=== PATIENT | male | born 1975 | race Caucasian/White ===

== ENCOUNTER 2021-09-02 11:56 | Inpatient (IN) | payer OTHER ==
[2021-09-02 12:56] VITALS: BMI 29.6
[2021-09-02] MEDS ORDERED: IBUPROFEN 400 MG TABLET (FP) PO PRN (14:28)
[2021-09-02] MEDS ORDERED: NICOTINE 10 MG CARTRIDGE (INHALER) IH PRN (14:28)
[2021-09-02] MEDS ORDERED: guaiFENesin 200 MG/10 ML 10 ML UNIT-DOSE CUPS PO PRN (14:28)
[2021-09-02] MEDS ORDERED: MAGNESIUM HYDROX 2400MG/30ML ORAL SUSPENSION 30 ML CUP PO PRN (14:28)
[2021-09-02] MEDS ORDERED: LOPERAMIDE HCL 2 MG CAPSULE PO PRN (14:28)
[2021-09-02] MEDS ORDERED: ACETAMINOPHEN 325 MG TABLET (FP) PO PRN (14:28)
[2021-09-02] MEDS ORDERED: MAGNESIUM CITRATE 300 ML BOTTLE PO PRN (14:28)
[2021-09-02] MEDS ORDERED: P-EPHED 60MG/TRIPROLIDI 2.5MG TABLET PO PRN (14:28)
[2021-09-02] MEDS ORDERED: hydrOXYzine PAMOATE 25 MG CAPSULE (FP) PO SCH (18:00)
[2021-09-02] MEDS ORDERED: traZODone HCL 100 MG TABLET (FP) PO ONE (22:00)
[2021-09-02] MEDS ORDERED: GABAPENTIN 400 MG CAPSULE PO ONE (22:00)
[2021-09-02] MEDS ORDERED: MELATONIN 5 MG TABLETS PO SCH (22:00)
[2021-09-02] MEDS ORDERED: OLANZapine 10 MG TABLET PO ONE (22:00)
[2021-09-02] MEDS ORDERED: TUBERCULIN PPD 5 TU/0.1ML VIAL ID ONE (23:06)
[2021-09-02] MEDS: BACITRACIN 0.9 GM PACKET TP SCH (23:11)
[2021-09-02] MEDS: THIAMINE HCL 100 MG TABLET (FP) PO SCH (23:12)
[2021-09-03 01:50] LABS: URINE APPEARANCE CLEAR; URINE BILIRUBIN NEGATIVE (NEGATIVE); URINE COLOR YELLOW; URINE GLUCOSE (UA) NEGATIVE (NEGATIVE); URINE KETONE NEGATIVE (NEGATIVE); URINE LEUK ESTERASE NEGATIVE (NEGATIVE); URINE NITRITE NEGATIVE (NEGATIVE); URINE PROTEIN NEGATIVE (NEGATIVE); URINE UROBILINOGEN 0.2 mg/dL (0.2-1.0)
[2021-09-03] MEDS: BACITRACIN 0.9 GM PACKET TP SCH ×2 (10:28→21:10)
[2021-09-03] MEDS: hydrOXYzine PAMOATE 25 MG CAPSULE (FP) PO PRN ×2 (10:28→14:23)
[2021-09-03] MEDS: PRENATAL VITAMINS W/ FOLIC ACID TABLET (FP) PO SCH (10:28)
[2021-09-03] MEDS: NICOTINE 7 MG/24 HOURS TOPICAL PATCH TD SCH (10:28)
[2021-09-03] MEDS ORDERED: TUBERCULIN PPD 5 TU/0.1ML VIAL ID ONE (10:49)
[2021-09-03 13:11] LABS: HEMATOCRIT 41.8 % (35.4-49); HEMOGLOBIN 14.1 GM/dL (11.7-16.9); MCH 30.5 pg (25.7-33.7); MCHC 33.7 g/dl (32.0-35.9); MEAN CELL VOLUME 90.3 fl (80-96); MEAN PLT VOLUME 8.6 fl (7.5-11.1); RBC 4.63 M/mm3 (4.00-5.60); RDW 12.9 % (11.9-15.9); WHITE BLOOD COUNT 8.2 K/mm3 (4.0-10.0)
[2021-09-03 13:36] LABS: CALCIUM 9.4 mg/dL (8.5-10.1)
[2021-09-03 13:37] LABS: ALBUMIN 3.8 g/dl (3.4-5.0); BLOOD UREA NITROGEN 9.4 mg/dL (7-18)
[2021-09-03 13:40] LABS: CREATININE 0.8 mg/dL (0.55-1.3)
[2021-09-03 13:41] LABS: BILIRUBIN,TOTAL 0.5 mg/dL (0.2-1); TOT PROT 7.6 g/dl (6.4-8.2)
[2021-09-03 13:44] LABS: PLATELET COUNT 259 10^3/uL (134-434)
[2021-09-03 13:54] LABS: SYPHILIS W/ RPR CONF NON-REACTIVE (NONREACTIVE)
[2021-09-03] MEDS: CALCIUM 500MG/VIT-D 200 UNITS COMBO TABLET (FP) PO SCH ×2 (15:27→21:11)
[2021-09-03] MEDS: THIAMINE HCL 100 MG TABLET (FP) PO SCH (21:10)
[2021-09-03] MEDS: MELATONIN 5 MG TABLETS PO PRN (21:10)
[2021-09-03] MEDS: traZODone HCL 50 MG TABLET (FP) PO SCH (21:11)
[2021-09-03] MEDS: GABAPENTIN 400 MG CAPSULE PO SCH (21:11)
[2021-09-03] MEDS: OLANZapine 10 MG TABLET PO SCH (21:11)
[2021-09-03] MEDS ORDERED: hydrOXYzine PAMOATE 50 MG CAPSULE (FP) PO SCH (22:00)
[2021-09-04] MEDS: GABAPENTIN 400 MG CAPSULE PO SCH ×3 (06:00→21:14)
[2021-09-04] MEDS: CALCIUM 500MG/VIT-D 200 UNITS COMBO TABLET (FP) PO SCH ×2 (09:39→21:15)
[2021-09-04] MEDS: BACITRACIN 0.9 GM PACKET TP SCH ×2 (09:39→21:16)
[2021-09-04] MEDS: PRENATAL VITAMINS W/ FOLIC ACID TABLET (FP) PO SCH (09:39)
[2021-09-04] MEDS: hydrOXYzine PAMOATE 25 MG CAPSULE (FP) PO PRN ×3 (09:41→18:46)
[2021-09-04] MEDS: NICOTINE 7 MG/24 HOURS TOPICAL PATCH TD SCH (09:42)
[2021-09-04] MEDS ORDERED: OLANZapine 10 MG TABLET PO SCH (10:00)
[2021-09-04] MEDS: FLUoxetine HCL 10 MG TABLET PO SCH (12:07)
[2021-09-04] MEDS: NICOTINE 10 MG CARTRIDGE (INHALER) IH PRN (16:51)
[2021-09-04] MEDS: traZODone HCL 50 MG TABLET (FP) PO SCH (21:14)
[2021-09-04] MEDS: OLANZapine 10 MG TABLET PO SCH (21:14)
[2021-09-04] MEDS: THIAMINE HCL 100 MG TABLET (FP) PO SCH (21:16)
[2021-09-05] MEDS: GABAPENTIN 400 MG CAPSULE PO SCH (06:12)
[2021-09-05] MEDS: hydrOXYzine PAMOATE 25 MG CAPSULE (FP) PO PRN ×4 (06:13→18:18)
[2021-09-05] MEDS: BACITRACIN 0.9 GM PACKET TP SCH ×2 (09:57→21:12)
[2021-09-05] MEDS: NICOTINE 7 MG/24 HOURS TOPICAL PATCH TD SCH (09:57)
[2021-09-05] MEDS: PRENATAL VITAMINS W/ FOLIC ACID TABLET (FP) PO SCH (09:58)
[2021-09-05] MEDS: FLUoxetine HCL 10 MG TABLET PO SCH (09:59)
[2021-09-05] MEDS: CALCIUM 500MG/VIT-D 200 UNITS COMBO TABLET (FP) PO SCH ×2 (09:59→21:12)
[2021-09-05] MEDS: GABAPENTIN 300 MG CAPSULE PO SCH ×2 (14:17→21:13)
[2021-09-05] MEDS: NICOTINE 10 MG CARTRIDGE (INHALER) IH PRN (14:18)
[2021-09-05] MEDS: traZODone HCL 50 MG TABLET (FP) PO SCH (21:12)
[2021-09-05] MEDS: MELATONIN 5 MG TABLETS PO PRN (21:13)
[2021-09-05] MEDS: THIAMINE HCL 100 MG TABLET (FP) PO SCH (21:13)
[2021-09-05] MEDS: OLANZapine 10 MG TABLET PO SCH (21:13)
[2021-09-06] MEDS: GABAPENTIN 300 MG CAPSULE PO SCH ×3 (05:44→21:19)
[2021-09-06] MEDS: hydrOXYzine PAMOATE 25 MG CAPSULE (FP) PO PRN ×5 (05:44→22:12)
[2021-09-06] MEDS: NICOTINE 10 MG CARTRIDGE (INHALER) IH PRN ×2 (07:54→18:01)
[2021-09-06] MEDS: BACITRACIN 0.9 GM PACKET TP SCH ×2 (10:47→21:19)
[2021-09-06] MEDS: NICOTINE 7 MG/24 HOURS TOPICAL PATCH TD SCH (10:47)
[2021-09-06] MEDS: PRENATAL VITAMINS W/ FOLIC ACID TABLET (FP) PO SCH (10:48)
[2021-09-06] MEDS: CALCIUM 500MG/VIT-D 200 UNITS COMBO TABLET (FP) PO SCH ×2 (10:48→21:19)
[2021-09-06] MEDS: FLUoxetine HCL 10 MG TABLET PO SCH (10:48)
[2021-09-06] MEDS: OLANZapine 10 MG TABLET PO SCH ×2 (10:48→21:19)
[2021-09-06] MEDS: THIAMINE HCL 100 MG TABLET (FP) PO SCH (21:19)
[2021-09-06] MEDS: traZODone HCL 50 MG TABLET (FP) PO SCH (21:19)
[2021-09-06] MEDS: MELATONIN 5 MG TABLETS PO PRN (22:12)
[2021-09-07] MEDS: GABAPENTIN 300 MG CAPSULE PO SCH ×3 (06:20→21:25)
[2021-09-07] MEDS: hydrOXYzine PAMOATE 25 MG CAPSULE (FP) PO PRN ×4 (06:20→22:41)
[2021-09-07] MEDS: NICOTINE 10 MG CARTRIDGE (INHALER) IH PRN ×2 (08:47→21:25)
[2021-09-07] MEDS: FLUoxetine HCL 10 MG TABLET PO SCH (09:56)
[2021-09-07] MEDS: NICOTINE 7 MG/24 HOURS TOPICAL PATCH TD SCH (09:56)
[2021-09-07] MEDS: BACITRACIN 0.9 GM PACKET TP SCH ×2 (09:56→21:25)
[2021-09-07] MEDS: PRENATAL VITAMINS W/ FOLIC ACID TABLET (FP) PO SCH (09:56)
[2021-09-07] MEDS: CALCIUM 500MG/VIT-D 200 UNITS COMBO TABLET (FP) PO SCH ×2 (09:56→21:25)
[2021-09-07] MEDS: OLANZapine 10 MG TABLET PO SCH ×2 (09:57→21:25)
[2021-09-07] MEDS: traZODone HCL 50 MG TABLET (FP) PO SCH (21:25)
[2021-09-07] MEDS: THIAMINE HCL 100 MG TABLET (FP) PO SCH (21:26)
[2021-09-07] MEDS: MELATONIN 5 MG TABLETS PO PRN (22:41)
[2021-09-08] MEDS: hydrOXYzine PAMOATE 25 MG CAPSULE (FP) PO PRN ×4 (05:40→21:18)
[2021-09-08] MEDS: GABAPENTIN 300 MG CAPSULE PO SCH ×3 (05:40→21:18)
[2021-09-08] MEDS: NICOTINE 7 MG/24 HOURS TOPICAL PATCH TD SCH (11:00)
[2021-09-08] MEDS: NICOTINE 10 MG CARTRIDGE (INHALER) IH PRN (11:00)
[2021-09-08] MEDS: BACITRACIN 0.9 GM PACKET TP SCH ×2 (11:00→21:19)
[2021-09-08] MEDS: PRENATAL VITAMINS W/ FOLIC ACID TABLET (FP) PO SCH (11:01)
[2021-09-08] MEDS: OLANZapine 10 MG TABLET PO SCH ×2 (11:01→21:18)
[2021-09-08] MEDS: FLUoxetine HCL 20 MG CAPSULE PO SCH (11:01)
[2021-09-08] MEDS: CALCIUM 500MG/VIT-D 200 UNITS COMBO TABLET (FP) PO SCH ×2 (11:02→21:19)
[2021-09-08] MEDS: MELATONIN 5 MG TABLETS PO PRN (21:18)
[2021-09-08] MEDS: THIAMINE HCL 100 MG TABLET (FP) PO SCH (21:18)
[2021-09-08] MEDS: traZODone HCL 50 MG TABLET (FP) PO SCH (21:18)
[2021-09-09] MEDS: NICOTINE 10 MG CARTRIDGE (INHALER) IH PRN ×4 (06:29→21:09)
[2021-09-09] MEDS: hydrOXYzine PAMOATE 25 MG CAPSULE (FP) PO PRN ×4 (06:29→21:09)
[2021-09-09] MEDS: GABAPENTIN 300 MG CAPSULE PO SCH ×3 (06:29→21:09)
[2021-09-09] MEDS: OLANZapine 10 MG TABLET PO SCH ×2 (10:13→21:09)
[2021-09-09] MEDS: FLUoxetine HCL 20 MG CAPSULE PO SCH (10:13)
[2021-09-09] MEDS: CALCIUM 500MG/VIT-D 200 UNITS COMBO TABLET (FP) PO SCH ×2 (10:13→21:09)
[2021-09-09] MEDS: BACITRACIN 0.9 GM PACKET TP SCH ×2 (10:13→21:09)
[2021-09-09] MEDS: NICOTINE 7 MG/24 HOURS TOPICAL PATCH TD SCH (10:13)
[2021-09-09] MEDS: PRENATAL VITAMINS W/ FOLIC ACID TABLET (FP) PO SCH (10:13)
[2021-09-09] MEDS: MELATONIN 5 MG TABLETS PO PRN (21:08)
[2021-09-09] MEDS: traZODone HCL 50 MG TABLET (FP) PO SCH (21:08)
[2021-09-09] MEDS: THIAMINE HCL 100 MG TABLET (FP) PO SCH (21:08)
[2021-09-10] MEDS: GABAPENTIN 300 MG CAPSULE PO SCH ×3 (06:08→21:14)
[2021-09-10] MEDS: hydrOXYzine PAMOATE 25 MG CAPSULE (FP) PO PRN ×4 (06:08→21:15)
[2021-09-10] MEDS: PRENATAL VITAMINS W/ FOLIC ACID TABLET (FP) PO SCH (10:57)
[2021-09-10] MEDS: BACITRACIN 0.9 GM PACKET TP SCH ×2 (10:57→21:39)
[2021-09-10] MEDS: NICOTINE 7 MG/24 HOURS TOPICAL PATCH TD SCH (10:59)
[2021-09-10] MEDS: CALCIUM 500MG/VIT-D 200 UNITS COMBO TABLET (FP) PO SCH ×2 (10:59→21:14)
[2021-09-10] MEDS: OLANZapine 10 MG TABLET PO SCH ×2 (10:59→21:14)
[2021-09-10] MEDS: NICOTINE 10 MG CARTRIDGE (INHALER) IH PRN ×2 (10:59→21:15)
[2021-09-10] MEDS: FLUoxetine HCL 20 MG CAPSULE PO SCH (10:59)
[2021-09-10] MEDS: traZODone HCL 50 MG TABLET (FP) PO SCH (21:13)
[2021-09-10] MEDS: MELATONIN 5 MG TABLETS PO PRN (21:15)
[2021-09-10] MEDS: THIAMINE HCL 100 MG TABLET (FP) PO SCH (21:15)
[2021-09-11] MEDS: GABAPENTIN 300 MG CAPSULE PO SCH ×3 (06:11→21:13)
[2021-09-11] MEDS: hydrOXYzine PAMOATE 25 MG CAPSULE (FP) PO PRN ×4 (06:11→21:15)
[2021-09-11] MEDS: NICOTINE 7 MG/24 HOURS TOPICAL PATCH TD SCH (10:16)
[2021-09-11] MEDS: BACITRACIN 0.9 GM PACKET TP SCH ×2 (10:16→23:29)
[2021-09-11] MEDS: FLUoxetine HCL 20 MG CAPSULE PO SCH (10:17)
[2021-09-11] MEDS: CALCIUM 500MG/VIT-D 200 UNITS COMBO TABLET (FP) PO SCH ×2 (10:17→21:13)
[2021-09-11] MEDS: NICOTINE 10 MG CARTRIDGE (INHALER) IH PRN ×2 (10:18→14:13)
[2021-09-11] MEDS: OLANZapine 10 MG TABLET PO SCH ×2 (10:18→21:15)
[2021-09-11] MEDS: PRENATAL VITAMINS W/ FOLIC ACID TABLET (FP) PO SCH (10:18)
[2021-09-11] MEDS: traZODone HCL 50 MG TABLET (FP) PO SCH (21:13)
[2021-09-11] MEDS: THIAMINE HCL 100 MG TABLET (FP) PO SCH (21:14)
[2021-09-11] MEDS: MELATONIN 5 MG TABLETS PO PRN (21:14)
[2021-09-12] MEDS: hydrOXYzine PAMOATE 25 MG CAPSULE (FP) PO PRN ×4 (05:38→18:03)
[2021-09-12] MEDS: GABAPENTIN 300 MG CAPSULE PO SCH ×3 (05:38→21:05)
[2021-09-12] MEDS: NICOTINE 10 MG CARTRIDGE (INHALER) IH PRN (06:44)
[2021-09-12] MEDS: MAG HYDROX/AL HYDROX/SIMETH 30 ML UNIT-DOSE CUP PO PRN (07:56)
[2021-09-12] MEDS: CALCIUM 500MG/VIT-D 200 UNITS COMBO TABLET (FP) PO SCH ×2 (10:55→21:05)
[2021-09-12] MEDS: NICOTINE 7 MG/24 HOURS TOPICAL PATCH TD SCH (10:55)
[2021-09-12] MEDS: FLUoxetine HCL 20 MG CAPSULE PO SCH (10:55)
[2021-09-12] MEDS: PRENATAL VITAMINS W/ FOLIC ACID TABLET (FP) PO SCH (10:55)
[2021-09-12] MEDS: OLANZapine 10 MG TABLET PO SCH ×2 (10:55→21:05)
[2021-09-12] MEDS: BACITRACIN 0.9 GM PACKET TP SCH ×2 (10:56→21:06)
[2021-09-12] MEDS: traZODone HCL 50 MG TABLET (FP) PO SCH (21:05)
[2021-09-12] MEDS: MELATONIN 5 MG TABLETS PO PRN (21:05)
[2021-09-12] MEDS: THIAMINE HCL 100 MG TABLET (FP) PO SCH (21:05)
[2021-09-13] MEDS: GABAPENTIN 300 MG CAPSULE PO SCH ×3 (06:26→21:10)
[2021-09-13] MEDS: hydrOXYzine PAMOATE 25 MG CAPSULE (FP) PO PRN ×6 (06:26→21:10)
[2021-09-13] MEDS: NICOTINE 10 MG CARTRIDGE (INHALER) IH PRN (10:39)
[2021-09-13] MEDS: NICOTINE 7 MG/24 HOURS TOPICAL PATCH TD SCH (10:40)
[2021-09-13] MEDS: PRENATAL VITAMINS W/ FOLIC ACID TABLET (FP) PO SCH (10:40)
[2021-09-13] MEDS: BACITRACIN 0.9 GM PACKET TP SCH ×2 (10:40→21:10)
[2021-09-13] MEDS: CALCIUM 500MG/VIT-D 200 UNITS COMBO TABLET (FP) PO SCH ×2 (10:41→21:10)
[2021-09-13] MEDS: FLUoxetine HCL 20 MG CAPSULE PO SCH (10:42)
[2021-09-13] MEDS: OLANZapine 10 MG TABLET PO SCH ×2 (10:43→21:10)
[2021-09-13] MEDS: MELATONIN 5 MG TABLETS PO PRN (21:09)
[2021-09-13] MEDS: traZODone HCL 50 MG TABLET (FP) PO SCH (21:10)
[2021-09-13] MEDS: THIAMINE HCL 100 MG TABLET (FP) PO SCH (21:10)
[2021-09-14] MEDS: GABAPENTIN 300 MG CAPSULE PO SCH ×3 (06:06→21:07)
[2021-09-14] MEDS: hydrOXYzine PAMOATE 25 MG CAPSULE (FP) PO PRN ×4 (06:08→21:07)
[2021-09-14] MEDS: NICOTINE 7 MG/24 HOURS TOPICAL PATCH TD SCH (10:41)
[2021-09-14] MEDS: CALCIUM 500MG/VIT-D 200 UNITS COMBO TABLET (FP) PO SCH ×2 (10:41→21:07)
[2021-09-14] MEDS: PRENATAL VITAMINS W/ FOLIC ACID TABLET (FP) PO SCH (10:42)
[2021-09-14] MEDS: OLANZapine 10 MG TABLET PO SCH ×2 (10:42→21:07)
[2021-09-14] MEDS: NICOTINE 10 MG CARTRIDGE (INHALER) IH PRN (10:44)
[2021-09-14] MEDS: FLUoxetine HCL 20 MG CAPSULE PO SCH (10:44)
[2021-09-14] MEDS: BACITRACIN 0.9 GM PACKET TP SCH ×2 (10:44→21:07)
[2021-09-14] MEDS: MAG HYDROX/AL HYDROX/SIMETH 30 ML UNIT-DOSE CUP PO PRN (14:00)
[2021-09-14] MEDS: MELATONIN 5 MG TABLETS PO PRN (21:07)
[2021-09-14] MEDS: traZODone HCL 50 MG TABLET (FP) PO SCH (21:07)
[2021-09-14] MEDS: THIAMINE HCL 100 MG TABLET (FP) PO SCH (21:07)
[2021-09-15] MEDS: GABAPENTIN 300 MG CAPSULE PO SCH ×3 (06:05→21:01)
[2021-09-15] MEDS: hydrOXYzine PAMOATE 25 MG CAPSULE (FP) PO PRN ×2 (06:05→09:57)
[2021-09-15] MEDS: FLUoxetine HCL 20 MG CAPSULE PO SCH (09:55)
[2021-09-15] MEDS: PRENATAL VITAMINS W/ FOLIC ACID TABLET (FP) PO SCH (09:55)
[2021-09-15] MEDS: CALCIUM 500MG/VIT-D 200 UNITS COMBO TABLET (FP) PO SCH ×2 (09:56→21:02)
[2021-09-15] MEDS: NICOTINE 7 MG/24 HOURS TOPICAL PATCH TD SCH (09:57)
[2021-09-15] MEDS: OLANZapine 10 MG TABLET PO SCH ×2 (09:57→21:01)
[2021-09-15] MEDS: NICOTINE 10 MG CARTRIDGE (INHALER) IH PRN ×2 (09:58→16:40)
[2021-09-15] MEDS: BACITRACIN 0.9 GM PACKET TP SCH ×2 (09:59→21:01)
[2021-09-15] MEDS: hydrOXYzine PAMOATE 50 MG CAPSULE (FP) PO PRN ×2 (14:41→21:04)
[2021-09-15] MEDS: traZODone HCL 50 MG TABLET (FP) PO SCH (21:02)
[2021-09-15] MEDS: THIAMINE HCL 100 MG TABLET (FP) PO SCH (21:02)
[2021-09-15] MEDS: MELATONIN 5 MG TABLETS PO PRN (21:02)
[2021-09-16] MEDS: hydrOXYzine PAMOATE 50 MG CAPSULE (FP) PO PRN ×3 (05:44→21:06)
[2021-09-16] MEDS: GABAPENTIN 300 MG CAPSULE PO SCH ×3 (05:45→21:05)
[2021-09-16] MEDS: FLUoxetine HCL 20 MG CAPSULE PO SCH (09:33)
[2021-09-16] MEDS: CALCIUM 500MG/VIT-D 200 UNITS COMBO TABLET (FP) PO SCH ×2 (09:33→21:06)
[2021-09-16] MEDS: PRENATAL VITAMINS W/ FOLIC ACID TABLET (FP) PO SCH (09:33)
[2021-09-16] MEDS: OLANZapine 10 MG TABLET PO SCH ×2 (09:33→21:05)
[2021-09-16] MEDS: BACITRACIN 0.9 GM PACKET TP SCH ×2 (09:33→21:04)
[2021-09-16] MEDS: NICOTINE 7 MG/24 HOURS TOPICAL PATCH TD SCH (09:35)
[2021-09-16] MEDS: NICOTINE 10 MG CARTRIDGE (INHALER) IH PRN (17:06)
[2021-09-16] MEDS: traZODone HCL 50 MG TABLET (FP) PO SCH (21:04)
[2021-09-16] MEDS: MELATONIN 5 MG TABLETS PO PRN (21:05)
[2021-09-16] MEDS: THIAMINE HCL 100 MG TABLET (FP) PO SCH (21:05)
[2021-09-17] MEDS: GABAPENTIN 300 MG CAPSULE PO SCH ×3 (05:49→21:12)
[2021-09-17] MEDS: hydrOXYzine PAMOATE 50 MG CAPSULE (FP) PO PRN ×2 (05:51→18:04)
[2021-09-17] MEDS: BACITRACIN 0.9 GM PACKET TP SCH ×2 (10:22→21:11)
[2021-09-17] MEDS: NICOTINE 7 MG/24 HOURS TOPICAL PATCH TD SCH (10:22)
[2021-09-17] MEDS: CALCIUM 500MG/VIT-D 200 UNITS COMBO TABLET (FP) PO SCH ×2 (10:23→21:12)
[2021-09-17] MEDS: OLANZapine 10 MG TABLET PO SCH ×2 (10:23→21:12)
[2021-09-17] MEDS: PRENATAL VITAMINS W/ FOLIC ACID TABLET (FP) PO SCH (10:23)
[2021-09-17] MEDS: FLUoxetine HCL 20 MG CAPSULE PO SCH (10:23)
[2021-09-17] MEDS: NICOTINE 10 MG CARTRIDGE (INHALER) IH PRN (10:24)
[2021-09-17] MEDS: MELATONIN 5 MG TABLETS PO PRN (21:11)
[2021-09-17] MEDS: THIAMINE HCL 100 MG TABLET (FP) PO SCH (21:11)
[2021-09-17] MEDS: traZODone HCL 50 MG TABLET (FP) PO SCH (21:12)
[2021-09-18] MEDS: GABAPENTIN 300 MG CAPSULE PO SCH ×3 (06:05→21:03)
[2021-09-18] MEDS: hydrOXYzine PAMOATE 50 MG CAPSULE (FP) PO PRN ×3 (06:05→18:30)
[2021-09-18] MEDS: FLUoxetine HCL 20 MG CAPSULE PO SCH (10:06)
[2021-09-18] MEDS: PRENATAL VITAMINS W/ FOLIC ACID TABLET (FP) PO SCH (10:06)
[2021-09-18] MEDS: OLANZapine 10 MG TABLET PO SCH ×2 (10:06→21:03)
[2021-09-18] MEDS: NICOTINE 7 MG/24 HOURS TOPICAL PATCH TD SCH (10:06)
[2021-09-18] MEDS: CALCIUM 500MG/VIT-D 200 UNITS COMBO TABLET (FP) PO SCH ×2 (10:06→21:03)
[2021-09-18] MEDS: NICOTINE 10 MG CARTRIDGE (INHALER) IH PRN (10:06)
[2021-09-18] MEDS: BACITRACIN 0.9 GM PACKET TP SCH ×2 (10:06→21:03)
[2021-09-18] MEDS: traZODone HCL 50 MG TABLET (FP) PO SCH (21:03)
[2021-09-18] MEDS: THIAMINE HCL 100 MG TABLET (FP) PO SCH (21:03)
[2021-09-18] MEDS: MELATONIN 5 MG TABLETS PO PRN (21:03)
[2021-09-19] MEDS: GABAPENTIN 300 MG CAPSULE PO SCH ×3 (06:07→21:09)
[2021-09-19] MEDS: hydrOXYzine PAMOATE 50 MG CAPSULE (FP) PO PRN ×3 (06:08→21:09)
[2021-09-19] MEDS: NICOTINE 7 MG/24 HOURS TOPICAL PATCH TD SCH (09:57)
[2021-09-19] MEDS: BACITRACIN 0.9 GM PACKET TP SCH ×2 (09:57→21:08)
[2021-09-19] MEDS: CALCIUM 500MG/VIT-D 200 UNITS COMBO TABLET (FP) PO SCH ×2 (09:58→21:10)
[2021-09-19] MEDS: FLUoxetine HCL 20 MG CAPSULE PO SCH (09:58)
[2021-09-19] MEDS: PRENATAL VITAMINS W/ FOLIC ACID TABLET (FP) PO SCH (09:58)
[2021-09-19] MEDS: NICOTINE 10 MG CARTRIDGE (INHALER) IH PRN (10:00)
[2021-09-19] MEDS: OLANZapine 10 MG TABLET PO SCH ×2 (11:48→21:10)
[2021-09-19] MEDS: MAG HYDROX/AL HYDROX/SIMETH 30 ML UNIT-DOSE CUP PO PRN (15:10)
[2021-09-19] MEDS: traZODone HCL 50 MG TABLET (FP) PO SCH (21:09)
[2021-09-19] MEDS: THIAMINE HCL 100 MG TABLET (FP) PO SCH (21:10)
[2021-09-19] MEDS: MELATONIN 5 MG TABLETS PO PRN (21:10)
[2021-09-20] MEDS: GABAPENTIN 300 MG CAPSULE PO SCH ×3 (06:07→21:09)
[2021-09-20] MEDS: hydrOXYzine PAMOATE 50 MG CAPSULE (FP) PO PRN ×3 (06:07→19:24)
[2021-09-20] MEDS: PRENATAL VITAMINS W/ FOLIC ACID TABLET (FP) PO SCH (10:03)
[2021-09-20] MEDS: FLUoxetine HCL 20 MG CAPSULE PO SCH (10:03)
[2021-09-20] MEDS: NICOTINE 7 MG/24 HOURS TOPICAL PATCH TD SCH (10:03)
[2021-09-20] MEDS: BACITRACIN 0.9 GM PACKET TP SCH ×2 (10:03→21:10)
[2021-09-20] MEDS: OLANZapine 10 MG TABLET PO SCH ×2 (10:04→21:09)
[2021-09-20] MEDS: CALCIUM 500MG/VIT-D 200 UNITS COMBO TABLET (FP) PO SCH ×2 (10:04→21:10)
[2021-09-20] MEDS: NICOTINE 10 MG CARTRIDGE (INHALER) IH PRN (10:06)
[2021-09-20] MEDS: traZODone HCL 50 MG TABLET (FP) PO SCH (21:08)
[2021-09-20] MEDS: MELATONIN 5 MG TABLETS PO PRN (21:09)
[2021-09-20] MEDS: THIAMINE HCL 100 MG TABLET (FP) PO SCH (21:10)
[2021-09-21] MEDS: hydrOXYzine PAMOATE 50 MG CAPSULE (FP) PO PRN ×3 (05:42→18:57)
[2021-09-21] MEDS: GABAPENTIN 300 MG CAPSULE PO SCH (05:43)
[2021-09-21] MEDS: NICOTINE 7 MG/24 HOURS TOPICAL PATCH TD SCH (10:34)
[2021-09-21] MEDS: BACITRACIN 0.9 GM PACKET TP SCH ×2 (10:34→21:05)
[2021-09-21] MEDS: NICOTINE 10 MG CARTRIDGE (INHALER) IH PRN ×2 (10:34→21:05)
[2021-09-21] MEDS: PRENATAL VITAMINS W/ FOLIC ACID TABLET (FP) PO SCH (10:35)
[2021-09-21] MEDS: CALCIUM 500MG/VIT-D 200 UNITS COMBO TABLET (FP) PO SCH ×2 (10:35→21:05)
[2021-09-21] MEDS: FLUoxetine HCL 20 MG CAPSULE PO SCH (10:35)
[2021-09-21] MEDS: OLANZapine 10 MG TABLET PO SCH (10:35)
[2021-09-21] MEDS: GABAPENTIN 400 MG CAPSULE PO SCH ×2 (14:01→21:05)
[2021-09-21] MEDS: THIAMINE HCL 100 MG TABLET (FP) PO SCH (21:05)
[2021-09-21] MEDS: MELATONIN 5 MG TABLETS PO PRN (21:05)
[2021-09-21] MEDS: traZODone HCL 50 MG TABLET (FP) PO SCH (21:05)
[2021-09-21] MEDS: OLANZapine 5 MG TABLET PO SCH (21:22)
[2021-09-22] MEDS: hydrOXYzine PAMOATE 50 MG CAPSULE (FP) PO PRN ×3 (05:46→18:43)
[2021-09-22] MEDS: GABAPENTIN 400 MG CAPSULE PO SCH ×3 (05:46→21:07)
[2021-09-22] MEDS: FLUoxetine HCL 20 MG CAPSULE PO SCH (09:52)
[2021-09-22] MEDS: CALCIUM 500MG/VIT-D 200 UNITS COMBO TABLET (FP) PO SCH ×2 (09:52→21:07)
[2021-09-22] MEDS: PRENATAL VITAMINS W/ FOLIC ACID TABLET (FP) PO SCH (09:52)
[2021-09-22] MEDS: BACITRACIN 0.9 GM PACKET TP SCH ×2 (09:52→21:07)
[2021-09-22] MEDS: OLANZapine 10 MG TABLET PO SCH (09:52)
[2021-09-22] MEDS: NICOTINE 7 MG/24 HOURS TOPICAL PATCH TD SCH (09:53)
[2021-09-22] MEDS: NICOTINE 10 MG CARTRIDGE (INHALER) IH PRN (09:53)
[2021-09-22] MEDS: MELATONIN 5 MG TABLETS PO PRN (21:07)
[2021-09-22] MEDS: THIAMINE HCL 100 MG TABLET (FP) PO SCH (21:07)
[2021-09-22] MEDS: traZODone HCL 50 MG TABLET (FP) PO SCH (21:07)
[2021-09-22] MEDS: OLANZapine 5 MG TABLET PO SCH (21:07)
[2021-09-23] MEDS: hydrOXYzine PAMOATE 50 MG CAPSULE (FP) PO PRN ×3 (06:08→19:17)
[2021-09-23] MEDS: GABAPENTIN 400 MG CAPSULE PO SCH ×3 (06:08→21:13)
[2021-09-23] MEDS: NICOTINE 7 MG/24 HOURS TOPICAL PATCH TD SCH (10:01)
[2021-09-23] MEDS: PRENATAL VITAMINS W/ FOLIC ACID TABLET (FP) PO SCH (10:01)
[2021-09-23] MEDS: CALCIUM 500MG/VIT-D 200 UNITS COMBO TABLET (FP) PO SCH ×2 (10:01→21:13)
[2021-09-23] MEDS: BACITRACIN 0.9 GM PACKET TP SCH ×2 (10:01→21:13)
[2021-09-23] MEDS: NICOTINE 10 MG CARTRIDGE (INHALER) IH PRN (10:01)
[2021-09-23] MEDS: FLUoxetine HCL 20 MG CAPSULE PO SCH (10:01)
[2021-09-23] MEDS: OLANZapine 10 MG TABLET PO SCH (10:02)
[2021-09-23] MEDS: OLANZapine 5 MG TABLET PO SCH (21:13)
[2021-09-23] MEDS: traZODone HCL 50 MG TABLET (FP) PO SCH (21:13)
[2021-09-23] MEDS: THIAMINE HCL 100 MG TABLET (FP) PO SCH (21:13)
[2021-09-24] MEDS: hydrOXYzine PAMOATE 50 MG CAPSULE (FP) PO PRN ×3 (05:59→21:19)
[2021-09-24] MEDS: GABAPENTIN 400 MG CAPSULE PO SCH ×3 (05:59→21:18)
[2021-09-24] MEDS: BACITRACIN 0.9 GM PACKET TP SCH ×2 (09:50→21:19)
[2021-09-24] MEDS: PRENATAL VITAMINS W/ FOLIC ACID TABLET (FP) PO SCH (09:50)
[2021-09-24] MEDS: FLUoxetine HCL 20 MG CAPSULE PO SCH (09:50)
[2021-09-24] MEDS: OLANZapine 10 MG TABLET PO SCH (09:50)
[2021-09-24] MEDS: CALCIUM 500MG/VIT-D 200 UNITS COMBO TABLET (FP) PO SCH ×2 (09:50→21:19)
[2021-09-24] MEDS: NICOTINE 10 MG CARTRIDGE (INHALER) IH PRN (09:50)
[2021-09-24] MEDS: NICOTINE 7 MG/24 HOURS TOPICAL PATCH TD SCH (09:51)
[2021-09-24] MEDS: MAG HYDROX/AL HYDROX/SIMETH 30 ML UNIT-DOSE CUP PO PRN (11:53)
[2021-09-24] MEDS: traZODone HCL 50 MG TABLET (FP) PO SCH (21:18)
[2021-09-24] MEDS: OLANZapine 5 MG TABLET PO SCH (21:18)
[2021-09-24] MEDS: MELATONIN 5 MG TABLETS PO PRN (21:19)
[2021-09-24] MEDS: THIAMINE HCL 100 MG TABLET (FP) PO SCH (21:19)
[2021-09-25] MEDS: hydrOXYzine PAMOATE 50 MG CAPSULE (FP) PO PRN ×3 (06:37→19:04)
[2021-09-25] MEDS: GABAPENTIN 400 MG CAPSULE PO SCH ×3 (06:37→21:07)
[2021-09-25] MEDS: CALCIUM 500MG/VIT-D 200 UNITS COMBO TABLET (FP) PO SCH ×2 (09:36→21:08)
[2021-09-25] MEDS: NICOTINE 7 MG/24 HOURS TOPICAL PATCH TD SCH (09:36)
[2021-09-25] MEDS: FLUoxetine HCL 20 MG CAPSULE PO SCH (09:36)
[2021-09-25] MEDS: OLANZapine 10 MG TABLET PO SCH (09:36)
[2021-09-25] MEDS: PRENATAL VITAMINS W/ FOLIC ACID TABLET (FP) PO SCH (09:36)
[2021-09-25] MEDS: NICOTINE 10 MG CARTRIDGE (INHALER) IH PRN (09:37)
[2021-09-25] MEDS: BACITRACIN 0.9 GM PACKET TP SCH ×2 (10:18→21:07)
[2021-09-25] MEDS: THIAMINE HCL 100 MG TABLET (FP) PO SCH (21:08)
[2021-09-25] MEDS: traZODone HCL 50 MG TABLET (FP) PO SCH (21:08)
[2021-09-25] MEDS: OLANZapine 5 MG TABLET PO SCH (22:03)
[2021-09-26] MEDS: GABAPENTIN 400 MG CAPSULE PO SCH ×3 (06:25→21:13)
[2021-09-26] MEDS: hydrOXYzine PAMOATE 50 MG CAPSULE (FP) PO PRN ×3 (06:28→18:44)
[2021-09-26] MEDS: CALCIUM 500MG/VIT-D 200 UNITS COMBO TABLET (FP) PO SCH ×2 (10:23→21:57)
[2021-09-26] MEDS: BACITRACIN 0.9 GM PACKET TP SCH ×2 (10:23→21:15)
[2021-09-26] MEDS: PRENATAL VITAMINS W/ FOLIC ACID TABLET (FP) PO SCH (10:23)
[2021-09-26] MEDS: FLUoxetine HCL 20 MG CAPSULE PO SCH (10:23)
[2021-09-26] MEDS: NICOTINE 7 MG/24 HOURS TOPICAL PATCH TD SCH (10:23)
[2021-09-26] MEDS: OLANZapine 10 MG TABLET PO SCH (10:23)
[2021-09-26] MEDS: NICOTINE 10 MG CARTRIDGE (INHALER) IH PRN (10:24)
[2021-09-26] MEDS: MAG HYDROX/AL HYDROX/SIMETH 30 ML UNIT-DOSE CUP PO PRN (18:43)
[2021-09-26] MEDS: traZODone HCL 50 MG TABLET (FP) PO SCH (21:13)
[2021-09-26] MEDS: OLANZapine 5 MG TABLET PO SCH (21:13)
[2021-09-26] MEDS: THIAMINE HCL 100 MG TABLET (FP) PO SCH (21:14)
[2021-09-26] MEDS: MELATONIN 5 MG TABLETS PO PRN (21:14)
[2021-09-27] MEDS: GABAPENTIN 400 MG CAPSULE PO SCH ×3 (06:30→21:20)
[2021-09-27] MEDS: NICOTINE 10 MG CARTRIDGE (INHALER) IH PRN (06:30)
[2021-09-27] MEDS: hydrOXYzine PAMOATE 50 MG CAPSULE (FP) PO PRN ×3 (06:30→21:21)
[2021-09-27] MEDS: CALCIUM 500MG/VIT-D 200 UNITS COMBO TABLET (FP) PO SCH ×2 (10:01→21:22)
[2021-09-27] MEDS: FLUoxetine HCL 20 MG CAPSULE PO SCH (10:02)
[2021-09-27] MEDS: NICOTINE 7 MG/24 HOURS TOPICAL PATCH TD SCH (10:02)
[2021-09-27] MEDS: PRENATAL VITAMINS W/ FOLIC ACID TABLET (FP) PO SCH (10:02)
[2021-09-27] MEDS: BACITRACIN 0.9 GM PACKET TP SCH ×2 (10:03→21:20)
[2021-09-27] MEDS: OLANZapine 10 MG TABLET PO SCH (10:14)
[2021-09-27] MEDS: THIAMINE HCL 100 MG TABLET (FP) PO SCH (21:20)
[2021-09-27] MEDS: traZODone HCL 50 MG TABLET (FP) PO SCH (21:20)
[2021-09-27] MEDS: OLANZapine 5 MG TABLET PO SCH (21:20)
[2021-09-27] MEDS: MELATONIN 5 MG TABLETS PO PRN (21:20)
[2021-09-28] MEDS: GABAPENTIN 400 MG CAPSULE PO SCH ×3 (06:07→21:07)
[2021-09-28] MEDS: hydrOXYzine PAMOATE 50 MG CAPSULE (FP) PO PRN ×3 (06:07→19:40)
[2021-09-28] MEDS: FLUoxetine HCL 20 MG CAPSULE PO SCH (10:34)
[2021-09-28] MEDS: CALCIUM 500MG/VIT-D 200 UNITS COMBO TABLET (FP) PO SCH ×2 (10:34→21:07)
[2021-09-28] MEDS: PRENATAL VITAMINS W/ FOLIC ACID TABLET (FP) PO SCH (10:34)
[2021-09-28] MEDS: BACITRACIN 0.9 GM PACKET TP SCH ×2 (10:34→21:07)
[2021-09-28] MEDS: NICOTINE 10 MG CARTRIDGE (INHALER) IH PRN (10:35)
[2021-09-28] MEDS: NICOTINE 7 MG/24 HOURS TOPICAL PATCH TD SCH (10:35)
[2021-09-28] MEDS: traZODone HCL 50 MG TABLET (FP) PO SCH (21:07)
[2021-09-28] MEDS: MELATONIN 5 MG TABLETS PO PRN (21:07)
[2021-09-28] MEDS: THIAMINE HCL 100 MG TABLET (FP) PO SCH (21:07)
[2021-09-28] MEDS ORDERED: OLANZapine 10 MG TABLET PO SCH (22:00)
[2021-09-29] MEDS: GABAPENTIN 400 MG CAPSULE PO SCH (06:05)
[2021-09-29] MEDS: hydrOXYzine PAMOATE 50 MG CAPSULE (FP) PO PRN (06:05)
[2021-09-29 06:53] VITALS: BP 145/87; PULSE 86; TEMP 97.6
[2021-09-29] MEDS: BACITRACIN 0.9 GM PACKET TP SCH (09:32)
[2021-09-29] MEDS: PRENATAL VITAMINS W/ FOLIC ACID TABLET (FP) PO SCH (09:32)
[2021-09-29] MEDS: CALCIUM 500MG/VIT-D 200 UNITS COMBO TABLET (FP) PO SCH (09:32)
[2021-09-29] MEDS: FLUoxetine HCL 20 MG CAPSULE PO SCH (09:32)
[2021-09-29] MEDS: NICOTINE 10 MG CARTRIDGE (INHALER) IH PRN (09:33)
== END 2021-09-29 09:45 | disposition home or self-care (01) | DRG 772 ==
LOC: YASAS 11:56 → Y3W 21:30
PROVIDERS: ADMIT Allergy & Immunology; ATTEND Psychiatry & Neurology Pain Medicine
PROC: HZ42ZZZ Group Counseling for Substance Abuse Treatment, Cognitive-Behavioral (ICD-10-PCS; principal; 2021-09-02)
DX: F10.20 Alcohol dependence, uncomplicated (principal); F14.20 Cocaine dependence, uncomplicated; F13.20 Sedative, hypnotic or anxiolytic dependence, uncomplicated; F17.210 Nicotine dependence, cigarettes, uncomplicated; F31.9 Bipolar disorder, unspecified; F41.9 Anxiety disorder, unspecified; F42.9 Obsessive-compulsive disorder, unspecified; Z59.00 Homelessness unspecified; Z56.0 Unemployment, unspecified
CPT/HCPCS: 36415; 80053; 81003; 85027; 86780; 86803

== ENCOUNTER 2022-06-25 14:43 | Inpatient (IN) | payer OTHER ==
[2022-06-25 16:43] VITALS: BMI 32.6
[2022-06-25] MEDS ORDERED: BISMUTH SUBSALICYLATE 524 MG/30 ML PO PRN (18:39)
[2022-06-25] MEDS ORDERED: BENZONATATE 200 MG CAPSULE PO PRN (18:39)
[2022-06-25] MEDS ORDERED: POLYETHYLENE GLYCOL (HEALTHYLAX) 3350 17 GM PACKET PO PRN (18:39)
[2022-06-25] MEDS ORDERED: MAGNESIUM HYDROX 2400MG/30ML ORAL SUSPENSION 30 ML CUP PO PRN (18:39)
[2022-06-25] MEDS ORDERED: IBUPROFEN 400 MG TABLET (FP) PO PRN (18:39)
[2022-06-25] MEDS ORDERED: DICYCLOMINE HCL 10 MG CAPSULE PO PRN (18:39)
[2022-06-25] MEDS ORDERED: METHOCARBAMOL 500 MG TABLET PO PRN (18:39)
[2022-06-25] MEDS ORDERED: ACETAMINOPHEN 325 MG TABLET (FP) PO PRN (18:39)
[2022-06-25] MEDS ORDERED: LOPERAMIDE HCL 2 MG CAPSULE PO PRN (18:39)
[2022-06-25] MEDS ORDERED: IBUPROFEN 600 MG TABLET (FP) PO PRN (18:39)
[2022-06-25] MEDS ORDERED: NALOXONE HCL (KLOXXADO) 8 MG SPRAY NS PRN (18:39)
[2022-06-25] MEDS ORDERED: BENZOCAINE/MENTHOL (CHLORASEPTIC ) LOZENGE MM PRN (18:39)
[2022-06-25] MEDS ORDERED: NALOXONE HCL 0.4 MG/ML VIAL IM PRN (18:39)
[2022-06-25] MEDS ORDERED: ONDANSETRON *ODT* 4 MG TABLET SL PRN (18:39)
[2022-06-25] MEDS ORDERED: MAG HYDROX/AL HYDROX/SIMETH 30 ML UNIT-DOSE CUP PO PRN (18:39)
[2022-06-25] MEDS ORDERED: guaiFENesin 600 MG TABLET.ER (FP) PO PRN (18:39)
[2022-06-25] MEDS ORDERED: BUPRENORPHINE/NALOXONE 4 MG/1 MG FILM PACKET SL ONE (19:00)
[2022-06-25] MEDS ORDERED: BUPRENORPHINE/NALOXONE 4 MG/1 MG FILM PACKET ONE (19:10)
[2022-06-25] MEDS: LORazepam 1 MG TABLET PO PRN (19:42)
[2022-06-25] MEDS: MELATONIN 5 MG TABLETS PO SCH (22:25)
[2022-06-25] MEDS: THIAMINE HCL 100 MG TABLET (FP) PO SCH (22:25)
[2022-06-25] MEDS: LORazepam 2 MG TABLET PO SCH (22:25)
[2022-06-26] MEDS: LORazepam 2 MG TABLET PO SCH ×4 (06:00→22:01)
[2022-06-26] MEDS: metFORMIN HCL 500 MG TABLET (FP) PO SCH ×2 (06:02→17:30)
[2022-06-26] MEDS: PRENATAL VITAMINS W/ FOLIC ACID TABLET (FP) PO SCH (10:25)
[2022-06-26] MEDS: BUPRENORPHINE/NALOXONE 4 MG/1 MG FILM PACKET SL SCH ×2 (10:25→22:01)
[2022-06-26 11:23] LABS: HEMATOCRIT 37.3 % (35.4-49); HEMOGLOBIN 12.8 GM/dL (11.7-16.9); MCH 30.9 pg (25.7-33.7); MCHC 34.3 g/dl (32.0-35.9); MEAN CELL VOLUME 90.1 fl (80-96); MEAN PLT VOLUME 8.3 fl (7.5-11.1); PLATELET COUNT 234 10^3/uL (134-434); RBC 4.14 M/mm3 (4.00-5.60); RDW 12.3 % (11.9-15.9); WHITE BLOOD COUNT 3.7 K/mm3 (4.0-10.0)
[2022-06-26 11:30] LABS: ALBUMIN 3.4 g/dl (3.4-5.0); BLOOD UREA NITROGEN 13.8 mg/dL (7-18); CALCIUM 9.1 mg/dL (8.5-10.1)
[2022-06-26 11:33] LABS: CREATININE 0.7 mg/dL (0.55-1.3)
[2022-06-26 11:34] LABS: BILIRUBIN,TOTAL 0.7 mg/dL (0.2-1)
[2022-06-26 11:35] LABS: TOT PROT 6.6 g/dl (6.4-8.2)
[2022-06-26] MEDS ORDERED: OXcarbazepine 300 MG/5 ML UNIT DOSE CUPS PO SCH (11:45)
[2022-06-26] MEDS ORDERED: OXcarbazepine 150 MG TABLET (UD) PO SCH (12:00)
[2022-06-26] MEDS: PARoxetine HCL 20 MG TABLET PO SCH (12:25)
[2022-06-26] MEDS: OXcarbazepine 150 MG TABLET (UD) PO SCH (12:26)
[2022-06-26] MEDS: LURASIDONE HCL 40 MG TABLET PO SCH (12:27)
[2022-06-26] MEDS: GABAPENTIN 400 MG CAPSULE PO SCH ×2 (13:55→22:01)
[2022-06-26] MEDS: THIAMINE HCL 100 MG TABLET (FP) PO SCH (22:01)
[2022-06-26] MEDS: MELATONIN 5 MG TABLETS PO SCH (22:02)
[2022-06-27] MEDS: LORazepam 1 MG TABLET PO SCH ×4 (05:27→22:01)
[2022-06-27] MEDS: GABAPENTIN 400 MG CAPSULE PO SCH ×3 (05:27→22:01)
[2022-06-27] MEDS: metFORMIN HCL 500 MG TABLET (FP) PO SCH ×2 (06:37→17:14)
[2022-06-27] MEDS: NICOTINE 10 MG CARTRIDGE (INHALER) IH PRN ×4 (08:37→22:04)
[2022-06-27] MEDS: BUPRENORPHINE/NALOXONE 4 MG/1 MG FILM PACKET SL SCH ×2 (10:05→22:02)
[2022-06-27] MEDS: LURASIDONE HCL 40 MG TABLET PO SCH (10:05)
[2022-06-27] MEDS: PARoxetine HCL 20 MG TABLET PO SCH (10:06)
[2022-06-27] MEDS: PRENATAL VITAMINS W/ FOLIC ACID TABLET (FP) PO SCH (10:06)
[2022-06-27] MEDS: OXcarbazepine 150 MG TABLET (UD) PO SCH (10:09)
[2022-06-27] MEDS: hydrOXYzine PAMOATE 25 MG CAPSULE (FP) PO PRN (13:00)
[2022-06-27] MEDS: LORazepam 1 MG TABLET PO PRN (13:00)
[2022-06-27] MEDS: THIAMINE HCL 100 MG TABLET (FP) PO SCH (22:01)
[2022-06-27] MEDS: MELATONIN 5 MG TABLETS PO SCH (22:02)
[2022-06-28] MEDS ORDERED: LORazepam 0.5 MG TABLET PO PRN
[2022-06-28] MEDS: LORazepam 0.5 MG TABLET PO SCH ×4 (05:23→22:18)
[2022-06-28] MEDS: GABAPENTIN 400 MG CAPSULE PO SCH ×3 (05:23→22:18)
[2022-06-28] MEDS: NICOTINE 10 MG CARTRIDGE (INHALER) IH PRN ×4 (05:35→22:17)
[2022-06-28] MEDS: metFORMIN HCL 500 MG TABLET (FP) PO SCH ×2 (07:01→17:33)
[2022-06-28 09:15] VITALS: RESP 18
[2022-06-28] MEDS: PRENATAL VITAMINS W/ FOLIC ACID TABLET (FP) PO SCH (10:03)
[2022-06-28] MEDS: LURASIDONE HCL 40 MG TABLET PO SCH (10:04)
[2022-06-28] MEDS: PARoxetine HCL 20 MG TABLET PO SCH (10:04)
[2022-06-28] MEDS: BUPRENORPHINE/NALOXONE 4 MG/1 MG FILM PACKET SL SCH ×2 (10:05→22:18)
[2022-06-28] MEDS: OXcarbazepine 150 MG TABLET (UD) PO SCH (10:05)
[2022-06-28] MEDS: hydrOXYzine PAMOATE 25 MG CAPSULE (FP) PO PRN (13:59)
[2022-06-28] MEDS: MELATONIN 5 MG TABLETS PO SCH (22:17)
[2022-06-28] MEDS: THIAMINE HCL 100 MG TABLET (FP) PO SCH (22:18)
[2022-06-29] MEDS ORDERED: LORazepam 0.5 MG TABLET PO ONE (05:00)
[2022-06-29] MEDS: GABAPENTIN 400 MG CAPSULE PO SCH (05:27)
[2022-06-29] MEDS: metFORMIN HCL 500 MG TABLET (FP) PO SCH (06:12)
[2022-06-29] MEDS: PARoxetine HCL 20 MG TABLET PO SCH (10:44)
[2022-06-29] MEDS: PRENATAL VITAMINS W/ FOLIC ACID TABLET (FP) PO SCH (10:44)
[2022-06-29] MEDS: LURASIDONE HCL 40 MG TABLET PO SCH (10:44)
[2022-06-29] MEDS: hydrOXYzine PAMOATE 25 MG CAPSULE (FP) PO PRN (10:45)
[2022-06-29] MEDS: OXcarbazepine 150 MG TABLET (UD) PO SCH (10:45)
[2022-06-29] MEDS: BUPRENORPHINE/NALOXONE 4 MG/1 MG FILM PACKET SL SCH (10:45)
[2022-06-29] MEDS: NICOTINE 10 MG CARTRIDGE (INHALER) IH PRN (11:21)
[2022-06-29 13:31] VITALS: BP 140/65; PULSE 78; TEMP 98.1
== END 2022-06-29 13:30 | disposition other institution (70) | DRG 773 ==
LOC: YASAS 14:43 → Y6N 19:17
PROVIDERS: ADMIT Allergy & Immunology; ATTEND Surgery
PROC: HZ2ZZZZ Detoxification Services for Substance Abuse Treatment (ICD-10-PCS; principal; 2022-06-25)
DX: F11.23 Opioid dependence with withdrawal (principal); F10.230 Alcohol dependence with withdrawal, uncomplicated; F14.20 Cocaine dependence, uncomplicated; F17.210 Nicotine dependence, cigarettes, uncomplicated; F31.9 Bipolar disorder, unspecified; F19.282 Other psychoactive substance dependence with psychoactive substance-induced sleep disorder; F19.24 Other psychoactive substance dependence with psychoactive substance-induced mood disorder; F42.9 Obsessive-compulsive disorder, unspecified; E11.9 Type 2 diabetes mellitus without complications; Z79.84 Long term (current) use of oral hypoglycemic drugs; Z86.69 Personal history of other diseases of the nervous system and sense organs
CPT/HCPCS: 36415; 80053; 82962; 85027; 86780; C9803-CS; U0003; U0005

== ENCOUNTER 2022-06-29 13:07 | Inpatient (IN) | payer OTHER ==
[2022-06-29] MEDS ORDERED: MAGNESIUM HYDROX 2400MG/30ML ORAL SUSPENSION 30 ML CUP PO PRN (13:36)
[2022-06-29] MEDS ORDERED: BENZONATATE 200 MG CAPSULE PO PRN (13:36)
[2022-06-29] MEDS ORDERED: IBUPROFEN 600 MG TABLET (FP) PO PRN (13:36)
[2022-06-29] MEDS ORDERED: IBUPROFEN 400 MG TABLET (FP) PO PRN (13:36)
[2022-06-29] MEDS ORDERED: ACETAMINOPHEN 325 MG TABLET (FP) PO PRN (13:36)
[2022-06-29] MEDS ORDERED: guaiFENesin 600 MG TABLET.ER (FP) PO PRN (13:36)
[2022-06-29] MEDS ORDERED: BENZOCAINE/MENTHOL (CHLORASEPTIC ) LOZENGE MM PRN (13:36)
[2022-06-29] MEDS ORDERED: MAG HYDROX/AL HYDROX/SIMETH 30 ML UNIT-DOSE CUP PO PRN (13:36)
[2022-06-29] MEDS ORDERED: NALOXONE HCL 0.4 MG/ML VIAL IVPUSH PRN (13:36)
[2022-06-29] MEDS ORDERED: NALOXONE HCL (KLOXXADO) 8 MG SPRAY NS PRN (13:36)
[2022-06-29] MEDS ORDERED: POLYETHYLENE GLYCOL (HEALTHYLAX) 3350 17 GM PACKET PO PRN (13:36)
[2022-06-29] MEDS ORDERED: LOPERAMIDE HCL 2 MG CAPSULE PO PRN (13:36)
[2022-06-29] MEDS: NICOTINE 10 MG CARTRIDGE (INHALER) IH PRN ×2 (14:21→21:14)
[2022-06-29] MEDS: GABAPENTIN 400 MG CAPSULE PO SCH ×2 (14:21→21:12)
[2022-06-29] MEDS: metFORMIN HCL 500 MG TABLET (FP) PO SCH (16:40)
[2022-06-29] MEDS: THIAMINE HCL 100 MG TABLET (FP) PO SCH (21:11)
[2022-06-29] MEDS: MELATONIN 5 MG TABLETS PO SCH (21:11)
[2022-06-29] MEDS: hydrOXYzine PAMOATE 25 MG CAPSULE (FP) PO PRN (21:12)
[2022-06-29] MEDS: BUPRENORPHINE/NALOXONE 4 MG/1 MG FILM PACKET SL SCH (21:14)
[2022-06-30] MEDS: NICOTINE 10 MG CARTRIDGE (INHALER) IH PRN ×4 (02:20→21:16)
[2022-06-30] MEDS: GABAPENTIN 400 MG CAPSULE PO SCH ×3 (06:10→21:15)
[2022-06-30] MEDS: metFORMIN HCL 500 MG TABLET (FP) PO SCH ×2 (06:10→17:14)
[2022-06-30] MEDS: LURASIDONE HCL 40 MG TABLET PO SCH (10:07)
[2022-06-30] MEDS: PARoxetine HCL 20 MG TABLET PO SCH (10:07)
[2022-06-30] MEDS: BUPRENORPHINE/NALOXONE 4 MG/1 MG FILM PACKET SL SCH ×2 (10:08→21:15)
[2022-06-30] MEDS: PRENATAL VITAMINS W/ FOLIC ACID TABLET (FP) PO SCH (10:08)
[2022-06-30] MEDS: OXcarbazepine 150 MG TABLET (UD) PO SCH (10:08)
[2022-06-30] MEDS: THIAMINE HCL 100 MG TABLET (FP) PO SCH (21:14)
[2022-06-30] MEDS: MELATONIN 5 MG TABLETS PO SCH (21:14)
[2022-06-30] MEDS: hydrOXYzine PAMOATE 25 MG CAPSULE (FP) PO PRN (21:15)
[2022-07-01] MEDS: GABAPENTIN 400 MG CAPSULE PO SCH ×3 (06:41→21:29)
[2022-07-01] MEDS: metFORMIN HCL 500 MG TABLET (FP) PO SCH ×2 (06:41→16:55)
[2022-07-01] MEDS: NICOTINE 10 MG CARTRIDGE (INHALER) IH PRN ×3 (09:45→21:28)
[2022-07-01] MEDS: OXcarbazepine 150 MG TABLET (UD) PO SCH (09:46)
[2022-07-01] MEDS: PRENATAL VITAMINS W/ FOLIC ACID TABLET (FP) PO SCH (09:46)
[2022-07-01] MEDS: BUPRENORPHINE/NALOXONE 4 MG/1 MG FILM PACKET SL SCH ×2 (09:46→21:29)
[2022-07-01] MEDS: PARoxetine HCL 20 MG TABLET PO SCH (09:46)
[2022-07-01] MEDS: LURASIDONE HCL 40 MG TABLET PO SCH (09:47)
[2022-07-01] MEDS: MELATONIN 5 MG TABLETS PO SCH (21:29)
[2022-07-01] MEDS: THIAMINE HCL 100 MG TABLET (FP) PO SCH (21:29)
[2022-07-01] MEDS: hydrOXYzine PAMOATE 25 MG CAPSULE (FP) PO PRN (21:29)
[2022-07-02] MEDS: metFORMIN HCL 500 MG TABLET (FP) PO SCH ×2 (06:39→18:08)
[2022-07-02] MEDS: GABAPENTIN 400 MG CAPSULE PO SCH ×3 (06:39→21:19)
[2022-07-02] MEDS: NICOTINE 10 MG CARTRIDGE (INHALER) IH PRN ×3 (06:40→21:18)
[2022-07-02] MEDS: PRENATAL VITAMINS W/ FOLIC ACID TABLET (FP) PO SCH (09:49)
[2022-07-02] MEDS: LURASIDONE HCL 40 MG TABLET PO SCH (09:49)
[2022-07-02] MEDS: PARoxetine HCL 20 MG TABLET PO SCH (09:50)
[2022-07-02] MEDS: BUPRENORPHINE/NALOXONE 4 MG/1 MG FILM PACKET SL SCH ×2 (09:50→21:19)
[2022-07-02] MEDS: OXcarbazepine 150 MG TABLET (UD) PO SCH (09:50)
[2022-07-02] MEDS: METHOCARBAMOL 500 MG TABLET PO PRN (21:19)
[2022-07-02] MEDS: THIAMINE HCL 100 MG TABLET (FP) PO SCH (21:19)
[2022-07-02] MEDS: hydrOXYzine PAMOATE 25 MG CAPSULE (FP) PO PRN (21:19)
[2022-07-02] MEDS: MELATONIN 5 MG TABLETS PO SCH (21:20)
[2022-07-03] MEDS: GABAPENTIN 400 MG CAPSULE PO SCH ×3 (06:34→21:07)
[2022-07-03] MEDS: metFORMIN HCL 500 MG TABLET (FP) PO SCH ×2 (06:34→16:45)
[2022-07-03] MEDS: NICOTINE 10 MG CARTRIDGE (INHALER) IH PRN ×4 (06:35→18:19)
[2022-07-03] MEDS: LURASIDONE HCL 40 MG TABLET PO SCH (09:57)
[2022-07-03] MEDS: PRENATAL VITAMINS W/ FOLIC ACID TABLET (FP) PO SCH (09:58)
[2022-07-03] MEDS: PARoxetine HCL 20 MG TABLET PO SCH (09:58)
[2022-07-03] MEDS: BUPRENORPHINE/NALOXONE 4 MG/1 MG FILM PACKET SL SCH ×2 (09:59→21:07)
[2022-07-03] MEDS: OXcarbazepine 150 MG TABLET (UD) PO SCH (09:59)
[2022-07-03] MEDS: hydrOXYzine PAMOATE 25 MG CAPSULE (FP) PO PRN ×2 (10:00→21:07)
[2022-07-03] MEDS: METHOCARBAMOL 500 MG TABLET PO PRN (21:07)
[2022-07-03] MEDS: THIAMINE HCL 100 MG TABLET (FP) PO SCH (21:07)
[2022-07-03] MEDS: MELATONIN 5 MG TABLETS PO SCH (21:07)
[2022-07-04] MEDS: GABAPENTIN 400 MG CAPSULE PO SCH ×3 (06:46→21:05)
[2022-07-04] MEDS: metFORMIN HCL 500 MG TABLET (FP) PO SCH ×2 (06:46→16:47)
[2022-07-04] MEDS: NICOTINE 10 MG CARTRIDGE (INHALER) IH PRN ×3 (08:58→20:01)
[2022-07-04] MEDS: LURASIDONE HCL 40 MG TABLET PO SCH (10:00)
[2022-07-04] MEDS: PRENATAL VITAMINS W/ FOLIC ACID TABLET (FP) PO SCH (10:00)
[2022-07-04] MEDS: BUPRENORPHINE/NALOXONE 4 MG/1 MG FILM PACKET SL SCH ×2 (10:00→21:06)
[2022-07-04] MEDS: PARoxetine HCL 20 MG TABLET PO SCH (10:00)
[2022-07-04] MEDS: hydrOXYzine PAMOATE 25 MG CAPSULE (FP) PO PRN ×2 (10:01→21:05)
[2022-07-04] MEDS: OXcarbazepine 150 MG TABLET (UD) PO SCH (10:01)
[2022-07-04] MEDS: THIAMINE HCL 100 MG TABLET (FP) PO SCH (21:05)
[2022-07-04] MEDS: MELATONIN 5 MG TABLETS PO SCH (21:05)
[2022-07-04] MEDS: METHOCARBAMOL 500 MG TABLET PO PRN (21:05)
[2022-07-05] MEDS: metFORMIN HCL 500 MG TABLET (FP) PO SCH ×2 (06:25→16:44)
[2022-07-05] MEDS: GABAPENTIN 400 MG CAPSULE PO SCH ×3 (06:25→21:04)
[2022-07-05] MEDS: BUPRENORPHINE/NALOXONE 4 MG/1 MG FILM PACKET SL SCH ×2 (09:50→21:04)
[2022-07-05] MEDS: PRENATAL VITAMINS W/ FOLIC ACID TABLET (FP) PO SCH (09:51)
[2022-07-05] MEDS: LURASIDONE HCL 40 MG TABLET PO SCH (09:51)
[2022-07-05] MEDS: PARoxetine HCL 20 MG TABLET PO SCH (09:51)
[2022-07-05] MEDS: OXcarbazepine 150 MG TABLET (UD) PO SCH (09:52)
[2022-07-05] MEDS: NICOTINE 10 MG CARTRIDGE (INHALER) IH PRN ×3 (09:52→18:01)
[2022-07-05] MEDS: MELATONIN 5 MG TABLETS PO SCH (21:04)
[2022-07-05] MEDS: THIAMINE HCL 100 MG TABLET (FP) PO SCH (21:04)
[2022-07-05] MEDS: hydrOXYzine PAMOATE 25 MG CAPSULE (FP) PO PRN (21:04)
[2022-07-06] MEDS: GABAPENTIN 400 MG CAPSULE PO SCH ×3 (06:36→21:02)
[2022-07-06] MEDS: metFORMIN HCL 500 MG TABLET (FP) PO SCH ×2 (06:36→16:38)
[2022-07-06] MEDS: NICOTINE 10 MG CARTRIDGE (INHALER) IH PRN ×3 (08:48→21:03)
[2022-07-06] MEDS: PARoxetine HCL 20 MG TABLET PO SCH (09:41)
[2022-07-06] MEDS: OXcarbazepine 150 MG TABLET (UD) PO SCH (09:41)
[2022-07-06] MEDS: NICOTINE 14 MG/24 HOURS TOPICAL PATCH TD SCH (09:41)
[2022-07-06] MEDS: LURASIDONE HCL 40 MG TABLET PO SCH (09:42)
[2022-07-06] MEDS: BUPRENORPHINE/NALOXONE 4 MG/1 MG FILM PACKET SL SCH ×2 (09:43→21:03)
[2022-07-06] MEDS: PRENATAL VITAMINS W/ FOLIC ACID TABLET (FP) PO SCH (09:43)
[2022-07-06] MEDS: hydrOXYzine PAMOATE 25 MG CAPSULE (FP) PO PRN (21:02)
[2022-07-06] MEDS: THIAMINE HCL 100 MG TABLET (FP) PO SCH (21:02)
[2022-07-06] MEDS: MELATONIN 5 MG TABLETS PO SCH (21:02)
[2022-07-07] MEDS: hydrOXYzine PAMOATE 25 MG CAPSULE (FP) PO PRN ×2 (06:28→21:05)
[2022-07-07] MEDS: GABAPENTIN 400 MG CAPSULE PO SCH ×3 (06:28→21:05)
[2022-07-07] MEDS: metFORMIN HCL 500 MG TABLET (FP) PO SCH ×2 (06:32→16:32)
[2022-07-07] MEDS: PARoxetine HCL 20 MG TABLET PO SCH (09:56)
[2022-07-07] MEDS: PRENATAL VITAMINS W/ FOLIC ACID TABLET (FP) PO SCH (09:56)
[2022-07-07] MEDS: BUPRENORPHINE/NALOXONE 4 MG/1 MG FILM PACKET SL SCH ×2 (09:56→21:05)
[2022-07-07] MEDS: NICOTINE 10 MG CARTRIDGE (INHALER) IH PRN ×2 (09:57→21:05)
[2022-07-07] MEDS: NICOTINE 14 MG/24 HOURS TOPICAL PATCH TD SCH (09:58)
[2022-07-07] MEDS: OXcarbazepine 150 MG TABLET (UD) PO SCH (09:58)
[2022-07-07] MEDS: LURASIDONE HCL 40 MG TABLET PO SCH (09:58)
[2022-07-07] MEDS: TOLNAFTATE 1% CREAM 15 GM TUBE TP SCH ×2 (11:20→21:06)
[2022-07-07] MEDS: THIAMINE HCL 100 MG TABLET (FP) PO SCH (21:05)
[2022-07-07] MEDS: MELATONIN 5 MG TABLETS PO SCH (21:06)
[2022-07-08] MEDS: GABAPENTIN 400 MG CAPSULE PO SCH ×3 (06:37→21:03)
[2022-07-08] MEDS: metFORMIN HCL 500 MG TABLET (FP) PO SCH ×2 (06:37→16:54)
[2022-07-08] MEDS: hydrOXYzine PAMOATE 25 MG CAPSULE (FP) PO PRN ×2 (06:38→21:03)
[2022-07-08] MEDS: NICOTINE 10 MG CARTRIDGE (INHALER) IH PRN ×4 (08:57→21:04)
[2022-07-08] MEDS: NICOTINE 14 MG/24 HOURS TOPICAL PATCH TD SCH (09:57)
[2022-07-08] MEDS: LURASIDONE HCL 40 MG TABLET PO SCH (09:57)
[2022-07-08] MEDS: PARoxetine HCL 20 MG TABLET PO SCH (09:58)
[2022-07-08] MEDS: BUPRENORPHINE/NALOXONE 4 MG/1 MG FILM PACKET SL SCH ×2 (09:58→21:04)
[2022-07-08] MEDS: PRENATAL VITAMINS W/ FOLIC ACID TABLET (FP) PO SCH (09:58)
[2022-07-08] MEDS: TOLNAFTATE 1% CREAM 15 GM TUBE TP SCH ×2 (09:58→23:28)
[2022-07-08] MEDS: OXcarbazepine 150 MG TABLET (UD) PO SCH (09:59)
[2022-07-08] MEDS: MELATONIN 5 MG TABLETS PO SCH (21:03)
[2022-07-08] MEDS: THIAMINE HCL 100 MG TABLET (FP) PO SCH (21:03)
[2022-07-09] MEDS: metFORMIN HCL 500 MG TABLET (FP) PO SCH ×2 (06:28→16:44)
[2022-07-09] MEDS: GABAPENTIN 400 MG CAPSULE PO SCH ×3 (06:28→21:02)
[2022-07-09] MEDS: NICOTINE 10 MG CARTRIDGE (INHALER) IH PRN ×3 (06:44→18:07)
[2022-07-09] MEDS: LURASIDONE HCL 40 MG TABLET PO SCH (09:47)
[2022-07-09] MEDS: PRENATAL VITAMINS W/ FOLIC ACID TABLET (FP) PO SCH (09:47)
[2022-07-09] MEDS: BUPRENORPHINE/NALOXONE 4 MG/1 MG FILM PACKET SL SCH ×2 (09:47→21:02)
[2022-07-09] MEDS: PARoxetine HCL 20 MG TABLET PO SCH (09:47)
[2022-07-09] MEDS: OXcarbazepine 150 MG TABLET (UD) PO SCH (09:47)
[2022-07-09] MEDS: NICOTINE 14 MG/24 HOURS TOPICAL PATCH TD SCH (09:49)
[2022-07-09] MEDS: TOLNAFTATE 1% CREAM 15 GM TUBE TP SCH ×2 (09:50→21:03)
[2022-07-09] MEDS: hydrOXYzine PAMOATE 25 MG CAPSULE (FP) PO PRN ×2 (09:55→21:02)
[2022-07-09] MEDS: THIAMINE HCL 100 MG TABLET (FP) PO SCH (21:02)
[2022-07-09] MEDS: MELATONIN 5 MG TABLETS PO SCH (21:02)
[2022-07-10] MEDS: NICOTINE 10 MG CARTRIDGE (INHALER) IH PRN ×3 (06:39→15:19)
[2022-07-10] MEDS: GABAPENTIN 400 MG CAPSULE PO SCH ×3 (06:41→21:02)
[2022-07-10] MEDS: metFORMIN HCL 500 MG TABLET (FP) PO SCH ×2 (06:41→16:35)
[2022-07-10] MEDS: TOLNAFTATE 1% CREAM 15 GM TUBE TP SCH ×2 (09:41→21:03)
[2022-07-10] MEDS: PARoxetine HCL 20 MG TABLET PO SCH (09:41)
[2022-07-10] MEDS: BUPRENORPHINE/NALOXONE 4 MG/1 MG FILM PACKET SL SCH ×2 (09:41→21:02)
[2022-07-10] MEDS: OXcarbazepine 150 MG TABLET (UD) PO SCH (09:41)
[2022-07-10] MEDS: NICOTINE 14 MG/24 HOURS TOPICAL PATCH TD SCH (09:42)
[2022-07-10] MEDS: PRENATAL VITAMINS W/ FOLIC ACID TABLET (FP) PO SCH (09:42)
[2022-07-10] MEDS: LURASIDONE HCL 40 MG TABLET PO SCH (09:42)
[2022-07-10] MEDS: hydrOXYzine PAMOATE 25 MG CAPSULE (FP) PO PRN ×2 (10:50→21:02)
[2022-07-10] MEDS: MELATONIN 5 MG TABLETS PO SCH (21:02)
[2022-07-10] MEDS: THIAMINE HCL 100 MG TABLET (FP) PO SCH (21:02)
[2022-07-11] MEDS: metFORMIN HCL 500 MG TABLET (FP) PO SCH ×2 (06:00→16:56)
[2022-07-11] MEDS: GABAPENTIN 400 MG CAPSULE PO SCH ×3 (06:21→21:10)
[2022-07-11] MEDS: NICOTINE 10 MG CARTRIDGE (INHALER) IH PRN ×3 (07:31→21:12)
[2022-07-11] MEDS: BUPRENORPHINE/NALOXONE 4 MG/1 MG FILM PACKET SL SCH ×2 (09:54→21:10)
[2022-07-11] MEDS: PRENATAL VITAMINS W/ FOLIC ACID TABLET (FP) PO SCH (09:54)
[2022-07-11] MEDS: NICOTINE 14 MG/24 HOURS TOPICAL PATCH TD SCH (09:55)
[2022-07-11] MEDS: PARoxetine HCL 20 MG TABLET PO SCH (09:55)
[2022-07-11] MEDS: OXcarbazepine 150 MG TABLET (UD) PO SCH (09:55)
[2022-07-11] MEDS: LURASIDONE HCL 40 MG TABLET PO SCH (09:55)
[2022-07-11] MEDS: hydrOXYzine PAMOATE 25 MG CAPSULE (FP) PO PRN ×2 (09:57→21:10)
[2022-07-11] MEDS: TOLNAFTATE 1% CREAM 15 GM TUBE TP SCH (09:58)
[2022-07-11] MEDS ORDERED: TOLNAFTATE 1% CREAM 15 GM TUBE TP PRN (11:46)
[2022-07-11] MEDS: MELATONIN 5 MG TABLETS PO SCH (21:10)
[2022-07-11] MEDS: THIAMINE HCL 100 MG TABLET (FP) PO SCH (21:10)
[2022-07-12] MEDS: metFORMIN HCL 500 MG TABLET (FP) PO SCH ×2 (06:48→17:44)
[2022-07-12] MEDS: GABAPENTIN 400 MG CAPSULE PO SCH ×3 (06:48→21:16)
[2022-07-12] MEDS: LURASIDONE HCL 40 MG TABLET PO SCH (09:28)
[2022-07-12] MEDS: NICOTINE 14 MG/24 HOURS TOPICAL PATCH TD SCH (09:28)
[2022-07-12] MEDS: OXcarbazepine 150 MG TABLET (UD) PO SCH (09:29)
[2022-07-12] MEDS: PRENATAL VITAMINS W/ FOLIC ACID TABLET (FP) PO SCH (09:29)
[2022-07-12] MEDS: BUPRENORPHINE/NALOXONE 4 MG/1 MG FILM PACKET SL SCH ×2 (09:29→21:16)
[2022-07-12] MEDS: PARoxetine HCL 20 MG TABLET PO SCH (09:29)
[2022-07-12] MEDS: NICOTINE 10 MG CARTRIDGE (INHALER) IH PRN ×2 (12:30→21:16)
[2022-07-12] MEDS: hydrOXYzine PAMOATE 25 MG CAPSULE (FP) PO PRN ×2 (12:30→21:16)
[2022-07-12] MEDS: MELATONIN 5 MG TABLETS PO SCH (21:16)
[2022-07-12] MEDS: THIAMINE HCL 100 MG TABLET (FP) PO SCH (21:16)
[2022-07-13] MEDS: GABAPENTIN 400 MG CAPSULE PO SCH ×3 (06:27→21:09)
[2022-07-13] MEDS: metFORMIN HCL 500 MG TABLET (FP) PO SCH ×2 (06:27→17:00)
[2022-07-13] MEDS: LURASIDONE HCL 40 MG TABLET PO SCH (09:50)
[2022-07-13] MEDS: NICOTINE 14 MG/24 HOURS TOPICAL PATCH TD SCH (09:50)
[2022-07-13] MEDS: PRENATAL VITAMINS W/ FOLIC ACID TABLET (FP) PO SCH (09:51)
[2022-07-13] MEDS: PARoxetine HCL 20 MG TABLET PO SCH (09:51)
[2022-07-13] MEDS: OXcarbazepine 150 MG TABLET (UD) PO SCH (09:52)
[2022-07-13] MEDS: hydrOXYzine PAMOATE 25 MG CAPSULE (FP) PO PRN ×2 (09:52→21:09)
[2022-07-13] MEDS: BUPRENORPHINE/NALOXONE 4 MG/1 MG FILM PACKET SL SCH ×2 (09:52→21:09)
[2022-07-13] MEDS: NICOTINE 10 MG CARTRIDGE (INHALER) IH PRN ×3 (09:55→21:08)
[2022-07-13] MEDS: THIAMINE HCL 100 MG TABLET (FP) PO SCH (21:09)
[2022-07-13] MEDS: MELATONIN 5 MG TABLETS PO SCH (21:09)
[2022-07-14] MEDS: GABAPENTIN 400 MG CAPSULE PO SCH ×3 (06:48→21:06)
[2022-07-14] MEDS: metFORMIN HCL 500 MG TABLET (FP) PO SCH ×2 (06:48→17:24)
[2022-07-14] MEDS: PRENATAL VITAMINS W/ FOLIC ACID TABLET (FP) PO SCH (09:48)
[2022-07-14] MEDS: hydrOXYzine PAMOATE 25 MG CAPSULE (FP) PO PRN ×2 (09:48→21:06)
[2022-07-14] MEDS: PARoxetine HCL 20 MG TABLET PO SCH (09:48)
[2022-07-14] MEDS: NICOTINE 14 MG/24 HOURS TOPICAL PATCH TD SCH (09:48)
[2022-07-14] MEDS: BUPRENORPHINE/NALOXONE 4 MG/1 MG FILM PACKET SL SCH ×2 (09:48→21:06)
[2022-07-14] MEDS: LURASIDONE HCL 40 MG TABLET PO SCH (09:48)
[2022-07-14] MEDS: OXcarbazepine 150 MG TABLET (UD) PO SCH (09:48)
[2022-07-14] MEDS: NICOTINE 10 MG CARTRIDGE (INHALER) IH PRN ×3 (09:50→23:36)
[2022-07-14] MEDS: MELATONIN 5 MG TABLETS PO SCH (21:06)
[2022-07-14] MEDS: THIAMINE HCL 100 MG TABLET (FP) PO SCH (21:06)
[2022-07-15] MEDS: GABAPENTIN 400 MG CAPSULE PO SCH ×3 (06:37→21:05)
[2022-07-15] MEDS: metFORMIN HCL 500 MG TABLET (FP) PO SCH ×2 (06:37→17:07)
[2022-07-15] MEDS: BUPRENORPHINE/NALOXONE 4 MG/1 MG FILM PACKET SL SCH ×2 (09:42→21:05)
[2022-07-15] MEDS: NICOTINE 10 MG CARTRIDGE (INHALER) IH PRN ×2 (09:42→13:56)
[2022-07-15] MEDS: PARoxetine HCL 20 MG TABLET PO SCH (09:42)
[2022-07-15] MEDS: LURASIDONE HCL 40 MG TABLET PO SCH (09:43)
[2022-07-15] MEDS: OXcarbazepine 150 MG TABLET (UD) PO SCH (09:43)
[2022-07-15] MEDS: NICOTINE 14 MG/24 HOURS TOPICAL PATCH TD SCH (09:43)
[2022-07-15] MEDS: PRENATAL VITAMINS W/ FOLIC ACID TABLET (FP) PO SCH (09:44)
[2022-07-15] MEDS: hydrOXYzine PAMOATE 25 MG CAPSULE (FP) PO PRN ×2 (10:02→21:05)
[2022-07-15] MEDS: THIAMINE HCL 100 MG TABLET (FP) PO SCH (21:05)
[2022-07-15] MEDS: MELATONIN 5 MG TABLETS PO SCH (21:05)
[2022-07-16] MEDS: metFORMIN HCL 500 MG TABLET (FP) PO SCH ×2 (07:07→16:49)
[2022-07-16] MEDS: GABAPENTIN 400 MG CAPSULE PO SCH ×3 (07:07→21:04)
[2022-07-16] MEDS: LURASIDONE HCL 40 MG TABLET PO SCH (09:25)
[2022-07-16] MEDS: OXcarbazepine 150 MG TABLET (UD) PO SCH (09:25)
[2022-07-16] MEDS: PRENATAL VITAMINS W/ FOLIC ACID TABLET (FP) PO SCH (09:25)
[2022-07-16] MEDS: NICOTINE 14 MG/24 HOURS TOPICAL PATCH TD SCH (09:26)
[2022-07-16] MEDS: PARoxetine HCL 20 MG TABLET PO SCH (09:26)
[2022-07-16] MEDS: BUPRENORPHINE/NALOXONE 4 MG/1 MG FILM PACKET SL SCH ×2 (09:26→21:04)
[2022-07-16] MEDS: NICOTINE 10 MG CARTRIDGE (INHALER) IH PRN ×2 (09:28→16:49)
[2022-07-16] MEDS: hydrOXYzine PAMOATE 25 MG CAPSULE (FP) PO PRN ×2 (10:10→21:05)
[2022-07-16] MEDS: THIAMINE HCL 100 MG TABLET (FP) PO SCH (21:04)
[2022-07-16] MEDS: MELATONIN 5 MG TABLETS PO SCH (21:05)
[2022-07-17] MEDS: GABAPENTIN 400 MG CAPSULE PO SCH ×3 (06:47→21:07)
[2022-07-17] MEDS: metFORMIN HCL 500 MG TABLET (FP) PO SCH ×2 (06:47→17:28)
[2022-07-17] MEDS: NICOTINE 10 MG CARTRIDGE (INHALER) IH PRN ×3 (06:48→21:07)
[2022-07-17] MEDS: BUPRENORPHINE/NALOXONE 4 MG/1 MG FILM PACKET SL SCH ×2 (10:16→21:07)
[2022-07-17] MEDS: PRENATAL VITAMINS W/ FOLIC ACID TABLET (FP) PO SCH (10:16)
[2022-07-17] MEDS: PARoxetine HCL 20 MG TABLET PO SCH (10:17)
[2022-07-17] MEDS: OXcarbazepine 150 MG TABLET (UD) PO SCH (10:18)
[2022-07-17] MEDS: LURASIDONE HCL 40 MG TABLET PO SCH (10:18)
[2022-07-17] MEDS: NICOTINE 14 MG/24 HOURS TOPICAL PATCH TD SCH (10:18)
[2022-07-17] MEDS: hydrOXYzine PAMOATE 25 MG CAPSULE (FP) PO PRN ×2 (11:01→21:07)
[2022-07-17] MEDS: MELATONIN 5 MG TABLETS PO SCH (21:07)
[2022-07-17] MEDS: THIAMINE HCL 100 MG TABLET (FP) PO SCH (21:07)
[2022-07-18] MEDS: metFORMIN HCL 500 MG TABLET (FP) PO SCH ×2 (06:27→17:42)
[2022-07-18] MEDS: GABAPENTIN 400 MG CAPSULE PO SCH ×3 (06:27→21:11)
[2022-07-18 06:49] VITALS: RESP 16
[2022-07-18] MEDS: BUPRENORPHINE/NALOXONE 4 MG/1 MG FILM PACKET SL SCH ×2 (09:42→21:10)
[2022-07-18] MEDS: LURASIDONE HCL 40 MG TABLET PO SCH (09:43)
[2022-07-18] MEDS: PRENATAL VITAMINS W/ FOLIC ACID TABLET (FP) PO SCH (09:43)
[2022-07-18] MEDS: OXcarbazepine 150 MG TABLET (UD) PO SCH (09:43)
[2022-07-18] MEDS: NICOTINE 14 MG/24 HOURS TOPICAL PATCH TD SCH (09:43)
[2022-07-18] MEDS: PARoxetine HCL 20 MG TABLET PO SCH (09:43)
[2022-07-18] MEDS: NICOTINE 10 MG CARTRIDGE (INHALER) IH PRN ×2 (09:44→21:10)
[2022-07-18] MEDS: hydrOXYzine PAMOATE 25 MG CAPSULE (FP) PO PRN ×2 (10:06→21:10)
[2022-07-18] MEDS: THIAMINE HCL 100 MG TABLET (FP) PO SCH (21:10)
[2022-07-18] MEDS: MELATONIN 5 MG TABLETS PO SCH (21:11)
[2022-07-19 06:59] VITALS: PULSE 62
[2022-07-19] MEDS: metFORMIN HCL 500 MG TABLET (FP) PO SCH ×2 (07:00→16:52)
[2022-07-19] MEDS: GABAPENTIN 400 MG CAPSULE PO SCH ×3 (07:00→21:02)
[2022-07-19] MEDS: NICOTINE 10 MG CARTRIDGE (INHALER) IH PRN ×3 (09:38→21:03)
[2022-07-19] MEDS: NICOTINE 14 MG/24 HOURS TOPICAL PATCH TD SCH (09:39)
[2022-07-19] MEDS: OXcarbazepine 150 MG TABLET (UD) PO SCH (09:39)
[2022-07-19] MEDS: hydrOXYzine PAMOATE 25 MG CAPSULE (FP) PO PRN ×2 (09:39→21:02)
[2022-07-19] MEDS: PARoxetine HCL 20 MG TABLET PO SCH (09:39)
[2022-07-19] MEDS: PRENATAL VITAMINS W/ FOLIC ACID TABLET (FP) PO SCH (09:40)
[2022-07-19] MEDS: LURASIDONE HCL 40 MG TABLET PO SCH (09:40)
[2022-07-19] MEDS: BUPRENORPHINE/NALOXONE 4 MG/1 MG FILM PACKET SL SCH ×2 (09:43→21:03)
[2022-07-19] MEDS: THIAMINE HCL 100 MG TABLET (FP) PO SCH (21:01)
[2022-07-19] MEDS: MELATONIN 5 MG TABLETS PO SCH (21:01)
[2022-07-20] MEDS: metFORMIN HCL 500 MG TABLET (FP) PO SCH (06:32)
[2022-07-20] MEDS: GABAPENTIN 400 MG CAPSULE PO SCH (06:32)
[2022-07-20 06:41] VITALS: BP 108/72; TEMP 97.5
[2022-07-20] MEDS: LURASIDONE HCL 40 MG TABLET PO SCH (09:06)
[2022-07-20] MEDS: NICOTINE 14 MG/24 HOURS TOPICAL PATCH TD SCH (09:07)
[2022-07-20] MEDS: BUPRENORPHINE/NALOXONE 4 MG/1 MG FILM PACKET SL SCH (09:07)
[2022-07-20] MEDS: PARoxetine HCL 20 MG TABLET PO SCH (09:07)
[2022-07-20] MEDS: OXcarbazepine 150 MG TABLET (UD) PO SCH (09:07)
[2022-07-20] MEDS: PRENATAL VITAMINS W/ FOLIC ACID TABLET (FP) PO SCH (09:07)
== END 2022-07-20 09:17 | disposition home or self-care (01) | DRG 772 ==
LOC: YASAS 13:07 → Y3E 13:10
PROVIDERS: ADMIT Allergy & Immunology; ATTEND Psychiatry & Neurology Pain Medicine
PROC: HZ42ZZZ Group Counseling for Substance Abuse Treatment, Cognitive-Behavioral (ICD-10-PCS; principal; 2022-06-29)
DX: F11.20 Opioid dependence, uncomplicated (principal); F10.20 Alcohol dependence, uncomplicated; F14.20 Cocaine dependence, uncomplicated; F17.210 Nicotine dependence, cigarettes, uncomplicated; F19.282 Other psychoactive substance dependence with psychoactive substance-induced sleep disorder; F19.280 Other psychoactive substance dependence with psychoactive substance-induced anxiety disorder; F31.9 Bipolar disorder, unspecified; F19.24 Other psychoactive substance dependence with psychoactive substance-induced mood disorder; F41.9 Anxiety disorder, unspecified; F42.9 Obsessive-compulsive disorder, unspecified; B35.3 Tinea pedis; E11.9 Type 2 diabetes mellitus without complications; Z79.84 Long term (current) use of oral hypoglycemic drugs
CPT/HCPCS: 36415; 82962; 86803

== ENCOUNTER 2024-10-23 20:13 | Inpatient (IN) | payer OTHER ==
[2024-10-23 20:31] VITALS: BMI 25.8
[2024-10-23] MEDS ORDERED: ACETAMINOPHEN 325 MG TABLET (FP) PO PRN (21:13)
[2024-10-23] MEDS ORDERED: BENZOCAINE/MENTHOL (CHLORASEPTIC ) LOZENGE MM PRN (21:13)
[2024-10-23] MEDS ORDERED: guaiFENesin 600 MG TABLET.ER (FP) PO PRN (21:13)
[2024-10-23] MEDS ORDERED: LOPERAMIDE HCL 2 MG CAPSULE PO PRN (21:13)
[2024-10-23] MEDS ORDERED: BENZONATATE 200 MG CAPSULE PO PRN (21:13)
[2024-10-23] MEDS ORDERED: NALOXONE (NARCAN) HCL 4 MG/0.1 ML SPRAY NS PRN (21:13)
[2024-10-23] MEDS ORDERED: MAGNESIUM HYDROX 2400MG/30ML ORAL SUSPENSION 30 ML CUP PO PRN (21:13)
[2024-10-23] MEDS ORDERED: POLYETHYLENE GLYCOL (HEALTHYLAX) 3350 17 GM PACKET PO PRN (21:13)
[2024-10-23] MEDS ORDERED: NICOTINE POLACRILEX 2 MG LOZENGE BC PRN (21:13)
[2024-10-23] MEDS ORDERED: P-EPHED 60MG/TRIPROLIDI 2.5MG TABLET PO PRN (21:13)
[2024-10-23] MEDS: MELATONIN 5 MG TABLETS PO SCH (22:46)
[2024-10-23] MEDS: THIAMINE 100 MG TABLET PO SCH (22:47)
[2024-10-23] MEDS: IBUPROFEN 600 MG TABLET (FP) PO PRN (22:48)
[2024-10-23] MEDS: hydrOXYzine PAMOATE 25 MG CAPSULE (FP) PO PRN (22:48)
[2024-10-24] MEDS: PRENATAL VITAMINS W/ FOLIC ACID TABLET (FP) PO SCH (09:18)
[2024-10-24] MEDS: TUBERCULIN PPD 5 TU/0.1ML SYRINGE (IN PATIENT USE ONLY) ID ONE (09:18)
[2024-10-24 12:48] LABS: MCHC 32.0 g/dl (32.3-36.5); MEAN CELL VOLUME 94.7 fl (79.0-92.2); MEAN PLT VOLUME 9.9 fl (9.4-12.4); RDW 11.9 % (12.1-15.9)
[2024-10-24 12:49] LABS: CO2 31 mmol/L (21-32); GLUCOSE,RANDOM 86 mg/dL (74-106)
[2024-10-24 12:52] LABS: SGOT/AST 11 U/L (15-37); SGPT/ALT 24 U/L (13-61)
[2024-10-24 12:53] LABS: CREATININE 0.9 mg/dL (0.55-1.3)
[2024-10-24 12:54] LABS: TOT PROT 5.7 g/dl (6.4-8.2)
[2024-10-24 12:55] LABS: ALK PHOS 66 U/L (45-117)
[2024-10-24 13:54] LABS: SYPHILIS W/ RPR CONF NON-REACTIVE (NONREACTIVE)
[2024-10-24] MEDS: MELATONIN 5 MG TABLETS PO SCH (21:23)
[2024-10-25] MEDS: MAG HYDROX/AL HYDROX/SIMETH 30 ML UNIT-DOSE CUP PO PRN (06:38)
[2024-10-25 12:59] LABS: HCV DIAGNOSTIC IN-HOUSE W/RFLX NON-REACTIVE (NONREACTIVE)
[2024-10-26] MEDS: IBUPROFEN 400 MG TABLET (FP) PO PRN (21:26)
[2024-10-27] MEDS: CLOTRIMAZOLE/BETAMET DIPROP 15 GM TUBE TP SCH (13:43)
[2024-10-30] MEDS: GABAPENTIN 100 MG CAPSULE PO SCH (21:15)
[2024-10-30] MEDS: traZODone HCL 50 MG TABLET (FP) PO SCH (21:15)
[2024-10-31] MEDS: NICOTINE POLACRILEX 2 MG GUM BUC PRN (09:58)
[2024-10-31] MEDS: GABAPENTIN 300 MG CAPSULE PO SCH (21:29)
[2024-11-01 07:09] VITALS: BP 110/72; PULSE 71; RESP 18; TEMP 97.7
== END 2024-11-01 10:05 | disposition home or self-care (01) | DRG 772 ==
LOC: YASAS 20:13 → Y3NR 21:52 → Y3E 10-24 18:04
PROVIDERS: ADMIT Neuromusculoskeletal Medicine & OMM; ATTEND Psychiatry & Neurology Pain Medicine
PROC: HZ42ZZZ Group Counseling for Substance Abuse Treatment, Cognitive-Behavioral (ICD-10-PCS; principal; 2024-10-23)
DX: F14.20 Cocaine dependence, uncomplicated (principal); F17.210 Nicotine dependence, cigarettes, uncomplicated; Z59.02 Unsheltered homelessness
CPT/HCPCS: 36415; 80053; 80305; 80307; 82962; 85027; 86780; 86803; 87811; 93005; 93010